=== PATIENT | male | born 1965 | race Caucasian/White ===

== ENCOUNTER 2020-12-22 15:30 | Emergency (ER) | payer OTHER ==
[2020-12-22 16:51] LABS: BASOPHIL 0.8 % (0-2); EOSINOPHIL 1.5 % (0-5); HCT 46.4 % (42.0-52.0); HGB 15.3 g/dl (13.2-18.0); LYMPHOCYTE 27.3 % (15-48); MCH 30.1 pg (25.0-31.0); MCV 91.3 fL (78.0-100.0); MONOCYTE 6.5 % (0-12); MPV 11.4 fL (6.0-9.5); NEUTROPHIL 63.7 % (41-80); NRBC 0; PLT 275 K/uL (150-400); RBC 5.08 M/uL (4.70-6.00); RDW 12.7 % (11.5-14.0); WBC 8.8 K/uL (4.0-10.5)
[2020-12-22 16:56] LABS: INR 1.05 (0.9-1.2); PTT 28.9 SECONDS (22.2-34.7)
[2020-12-22 17:11] LABS: ALBUMIN 3.6 g/dL (3.4-5.0); BILIRUBIN - TOTAL 0.8 mg/dL (0.2-1.0); BUN/CREAT RATIO (CALC) 22.2 RATIO; CREATININE 0.99 mg/dL (0.67-1.17); GLOBULIN (CALCULATION) 3.9 g/dL; POTASSIUM 4.3 mmol/L (3.5-5.1); TOTAL PROTEIN 7.5 g/dL (6.4-8.2)
== END 2020-12-22 18:22 | disposition other institution (70) ==
LOC: FER 15:30
PROVIDERS: Emergency Medicine
DX: T24.002A Burn of unspecified degree of unspecified site of left lower limb, except ankle and foot, initial encounter (principal); T31.0 Burns involving less than 10% of body surface; X08.8XXA Exposure to other specified smoke, fire and flames, initial encounter; W40.9XXA Explosion of unspecified explosive materials, initial encounter; Y92.009 Unspecified place in unspecified non-institutional (private) residence as the place of occurrence of the external cause; Z23 Encounter for immunization
CPT/HCPCS: 36415; 73590; 80053; 82550; 85025; 85610; 85730; 90471; 90715; J1170; J2550; J7030